=== PATIENT | male | born 1965 | race Caucasian/White ===

== ENCOUNTER 2021-12-11 09:19 | Day surgery (SDC) | payer BC ==
[~2021-12-11] VITALS: Ht 177.8 cm; Wt 77.1 kg
[~2021-12-11 09:19] MED LIST: CEFAZOLIN SOD 2 GM in D5W 50 ML IV ONE
[2021-12-11] MEDS ORDERED: NS IRRIG SOLN 1000 ML IR ONE (14:13)
[2021-12-11] MEDS ORDERED: GLUCAGON,HUMAN RECOMBINANT 1 MG VIAL IV ONE (14:13)
[2021-12-11] MEDS ORDERED: ePHEDrine sulfate 50 MG/ML VIAL IVP ONE (14:13)
[2021-12-11] MEDS ORDERED: CEFAZOLIN 2 GM IVPB PREMIX 50 ML IV ONE (14:13)
[2021-12-11] MEDS ORDERED: KETOROLAC TROMETHAMINE 30 MG VIAL IVP ONE (14:13)
[2021-12-11] MEDS ORDERED: LR 1,000 ML IV.SOLN IV ONE (14:13)
[2021-12-11] MEDS ORDERED: SEVOFLURANE 15 MIN GAS INH ONE (14:13)
[2021-12-11] MEDS ORDERED: DEXAMETHASONE SOD PHOSPHATE 4 MG/ML VIAL IVP ONE (14:13)
[2021-12-11] MEDS ORDERED: PROPOFOL 200MG/ 20ML VIAL (DIPRIVAN) IV ONE (14:13)
[2021-12-11] MEDS ORDERED: NS 1000 ML IV.SOLN IV ONE (14:13)
[2021-12-11] MEDS ORDERED: HYDROmorphone 2 MG/ML VIAL IVP ONE (14:13)
[2021-12-11] MEDS ORDERED: MIDAZOLAM HCL 5 MG/5 ML VIAL IVP ONE (14:13)
[2021-12-11] MEDS ORDERED: ONDANSETRON HCL 4 MG/2 ML VIAL IVP PRN ×2 (16:45→17:30)
[2021-12-11] MEDS ORDERED: HYDROmorphone 1 MG/ML INJ. CARTRIDGE IVP PRN ×2 (16:45→17:30)
[2021-12-11] MEDS ORDERED: ACETAMINOPHEN 325 MG TABLET PO PRN ×2 (17:30→17:45)
[2021-12-11] MEDS ORDERED: CEFAZOLIN 1 GM IVPB PREMIX 50 ML IV SCH (18:00)
[2021-12-11 20:00] VITALS: BP_SYST 106
[2021-12-11] MEDS ORDERED: CEFAZOLIN 1 GM IVPB PREMIX 100 ML IV ONE (22:43)
[2021-12-12] VITALS: BP_SYST 109
[2021-12-12] MEDS: CEFAZOLIN 1 GM IVPB PREMIX 50 ML IV SCH ×2 (00:25→06:31)
[2021-12-12] MEDS: LR 1,000 ML IV SCH ×3 (00:35→13:41)
[2021-12-12 04:00] VITALS: BP_SYST 121
[2021-12-12 06:01] VITALS: BP_SYST 126
[2021-12-12 08:00] VITALS: BP_SYST 111
[2021-12-12 09:10] LABS: CALCIUM 8.9 mg/dL (8.4-11.0); CREATININE 0.7 mg/dL (0.55-1.30); POTASSIUM 4.2 mmol/L (3.5-5.1); TOTAL BILIRUBIN 1.2 mg/dL (0.0-1.0)
[2021-12-12 09:13] LABS: BASOPHILS % (AUTO) 0.2 % (0.0-2.0); EOSINOPHILS % (AUTO) 0.5 % (0.0-4.0); HEMATOCRIT 37.7 % (36-54); LYMPHOCYTES # (AUTO) 1.1 K/uL (1.0-5.5); LYMPHOCYTES % (AUTO) 13.9 % (20.5-51.5); MEAN CORPUSCULAR VOLUME 86 fL (79.0-98.0); MONOCYTES # (AUTO) 0.6 K/uL (0.0-1.0); MONOCYTES % (AUTO) 7.9 % (1.7-9.3); NEUTROPHILS % (AUTO) 77.5 % (40.0-70.0); PLATELET COUNT (AUTO) 137 K/uL (130-430); RED BLOOD CELL COUNT(AUTO) 4.37 MIL/uL (4.2-6.2); RED CELL DISTRIBUTION WIDTH 12.8 % (9.0-15.0); WHITE BLOOD COUNT (AUTO) 7.8 K/uL (4.8-10.8)
[2021-12-12 12:16] LABS: HEMOGLOBIN 12.7 g/dL (14.0-18.0); MEAN CORPUSCULAR HEMOGLOBIN 30 pg (27-31); MEAN CORPUSCULAR HGB CONC 34 % (32-36)
[2021-12-12 14:06] VITALS: BP_SYST 121
== END 2021-12-12 16:52 | disposition home or self-care (01) ==
LOC: SDS 09:19 → SMU 09:20 → SDS 12-12 16:52
PROVIDERS: ATTEND Surgery
DX: K80.12 Calculus of gallbladder with acute and chronic cholecystitis without obstruction (principal); Z20.822 Contact with and (suspected) exposure to COVID-19
CPT/HCPCS: 47563; 80053; 84132; 85025; 36415; 74300; 88304; 87426; 74181; J0690 ×2; J1100; J1610; J1885; J2250; J2704; J1170; Q9967; J7060; J7120; J7030; C1758; C1727; 76000

== ENCOUNTER 2021-12-15 06:21 | Emergency (ER) | payer BC ==
[~2021-12-15] VITALS: Ht 177.8 cm; Wt 77.1 kg
[2021-12-15 06:24] VITALS: BP_SYST 116
--- NOTE | 2021-12-15 06:32 | NUR ---
SENT HERE BY DR. GONZALEZ FOR RE EVAL FOR POSSIBLE ABDOMINAL PROCEDURE. PT STATED HE WAS CALLED BY HIS SURGEON TO CHECK IN FOR EVALUATION. PT DENIES N/V/D, +POST SURGICAL PAIN. NOTED SHON PRAT WITH DRAINAGE TO RLQ AREA. PMH;APPENDECTOMY, CHOLECYSTECTOMY PT AAOX4, NO SOB NOTED AND NOT IN ANY DISTRESS.
[2021-12-15 06:48] VITALS: BP_SYST 100
--- NOTE | 2021-12-15 07:00 | NUR ---
RIGHT 20G AC, PT AOX4 S/P CHOLECYSTECTOMY BY DR GONZALEZ. C/O ABD PN 09/12
--- NOTE | 2021-12-15 07:06 | NUR ---
PT WENT FOR ULTRASOUND
[2021-12-15] MEDS ORDERED: HYDROmorphone 1 MG/ML INJ. CARTRIDGE IVP PRN (07:30)
[2021-12-15] MEDS ORDERED: ONDANSETRON HCL 4 MG/2 ML VIAL IVP PRN (07:30)
[2021-12-15] MEDS ORDERED: D5/0.45 NS 1,000 ML IV SCH (07:30)
[2021-12-15] MEDS ORDERED: LORazepam 2 MG/ML VIAL IVP PRN (07:30)
--- NOTE | 2021-12-15 07:30 | NUR ---
KYAW Andrews at bedside examining patient.
[2021-12-15 08:29] LABS: BASOPHILS % (AUTO) 0.4 % (0.0-2.0); EOSINOPHILS # (AUTO) 0.2 K/uL (0.0-0.4); EOSINOPHILS % (AUTO) 2.5 % (0.0-4.0); HEMATOCRIT 39.6 % (36-54); LYMPHOCYTES # (AUTO) 1.2 K/uL (1.0-5.5); LYMPHOCYTES % (AUTO) 19.1 % (20.5-51.5); MEAN CORPUSCULAR VOLUME 87 fL (79.0-98.0); MONOCYTES # (AUTO) 0.4 K/uL (0.0-1.0); MONOCYTES % (AUTO) 6.5 % (1.7-9.3); NEUTROPHILS # (AUTO) 4.3 K/uL (1.8-7.7); NEUTROPHILS % (AUTO) 71.5 % (40.0-70.0); PLATELET COUNT (AUTO) 152 K/uL (130-430); RED BLOOD CELL COUNT(AUTO) 4.57 MIL/uL (4.2-6.2); RED CELL DISTRIBUTION WIDTH 12.8 % (9.0-15.0); WHITE BLOOD COUNT (AUTO) 6.1 K/uL (4.8-10.8)
[2021-12-15 08:53] LABS: CREATININE 0.76 mg/dL (0.55-1.30); POTASSIUM 3.6 mmol/L (3.5-5.1)
[2021-12-15 09:17] LABS: ALBUMIN 3.1 g/dL (3.4-4.8); TOTAL BILIRUBIN 0.9 mg/dL (0.0-1.0)
--- NOTE | 2021-12-15 09:52 | NUR ---
Patient given written and verbal discharge instructions and verbalizes understanding. ER Dr. Darryl LEONE discussed with patient the results and treatment provided. Patient in stable condition. ID arm band removed. IV catheter removed intact and dressing applied, no active bleeding. Patient educated on pain management and to follow up with PMD. Pain Scale 5/10. Opportunity for questions provided and answered. Medication side effect fact sheet provided.
[2021-12-15] MEDS ORDERED: NORMAL SALINE 5 ML DISP.SYRIN IVF SCH (14:00)
[2021-12-15] MEDS ORDERED: PIPERACILLIN/TAZO 2.25G/DEX-IS 50 ML IV ONE (17:00)
[2021-12-16] MEDS ORDERED: PIPERACILLIN/TAZO 2.25G/DEX-IS 50 ML IV SCH
== END 2021-12-15 09:50 | disposition home or self-care (01) ==
LOC: SED 06:21 → UNDOADMIN 07:39 → SMU 07:39 → UNDODISIN 08:00 → SMU 09:50
DX: R79.89 Other specified abnormal findings of blood chemistry (principal); K91.86 Retained cholelithiasis following cholecystectomy
CPT/HCPCS: 99284; 76700; 80053; 85025; 86886; 86900; 86901; 36415; J2543

== ENCOUNTER 2022-01-15 14:09 | Outpatient (CLI) | payer BC | END 2022-01-15 20:59 | disposition home or self-care (01) | LOC: SRD 14:09 | PROVIDERS: ATTEND Family Medicine | DX: K80.50 Calculus of bile duct without cholangitis or cholecystitis without obstruction (principal) | CPT/HCPCS: 71046-TC ==

== ENCOUNTER 2022-01-27 05:50 | Day surgery (SDC) | payer BC ==
[~2022-01-27] VITALS: Ht 177.8 cm; Wt 74.8 kg
[2022-01-27] MEDS ORDERED: INDOMETHACIN 50 MG SUPP.RECT RC ONE (07:30)
[2022-01-27] MEDS ORDERED: ROCURONIUM BROMIDE 10 MG/ML (ZEMURON) IV ONE (09:44)
[2022-01-27] MEDS ORDERED: fentaNYL CITRATE/PF 100 MCG/2 ML AMP IVP ONE (09:44)
[2022-01-27] MEDS ORDERED: DEXAMETHASONE SOD PHOSPHATE 4 MG/ML VIAL IVP ONE (09:44)
[2022-01-27] MEDS ORDERED: PROPOFOL 200MG/ 20ML VIAL (DIPRIVAN) IV ONE (09:44)
[2022-01-27] MEDS ORDERED: ONDANSETRON HCL 4 MG/2 ML VIAL IVP ONE (09:44)
[2022-01-27] MEDS ORDERED: SUGAMMADEX SODIUM 200 MG/2 ML VIAL IV ONE (09:44)
[2022-01-27] MEDS ORDERED: WATER FOR IRRIGATION,STERILE 1,000 ML IRRIG.SOLN IR ONE (09:44)
[2022-01-27] MEDS ORDERED: SUCCINYLCHOLINE CHLORIDE 20 MG/ML(QUELICIN) IVP ONE (09:44)
[2022-01-27] MEDS ORDERED: DESFLURANE 15 MIN GAS INH ONE (09:44)
[2022-01-27] MEDS ORDERED: NS IRRIG SOLN 1000 ML IR ONE (09:44)
[2022-01-27 15:46] VITALS: BP_SYST 113
== END 2022-01-27 12:13 | disposition home or self-care (01) ==
LOC: SDS 05:50 → SMU 05:50 → SDS 12:13
PROVIDERS: ATTEND Internal Medicine
DX: K80.50 Calculus of bile duct without cholangitis or cholecystitis without obstruction (principal); Z20.822 Contact with and (suspected) exposure to COVID-19
CPT/HCPCS: 36415; 87426; 43277; 74328; J3490; J1100; J2405; J2704; J0330; J3010; Q9967; J7030; C1769; 74330-TC